=== PATIENT | female | born 1975 | race Caucasian/White ===

== ENCOUNTER 2017-03-10 10:06 | Emergency (ER) | payer OTHER, MEDICAID ==
[2017-03-10 10:54] LABS: ANION GAP 12 mEq/L (8-16); CALCIUM 9.4 mg/dL (8.5-10.4); CARBON DIOXIDE 27 mEq/l (22-31); CHLORIDE 101 mEq/L (97-110); CREATININE 0.6 mg/dL (0.6-1.0); GLOMERULAR FILTRATION RATE > 60; GLUCOSE 115 mg/dL (70-100); SODIUM 140 mEq/L (134-144)
--- NOTE | 2017-03-10 10:56 | EDPHY ---
H & P Stated Complaint: SI/HI APPEALS COORDINATOR in ED after blood draw. Time Seen by Provider: 03/10/17 10:10 HPI/ROS: CHIEF COMPLAINT: Suicidal ideation, agitation, threatening behavior HISTORY OF PRESENT ILLNESS: This is a 41-year-old female with history of developmental delay, Tourette syndrome, OCD, and intermittent explosive disorder who resides at a fdc. Patient presented to the [facility] for a monthly, routine, blood draw as she has done multiple times in the past. After leaving the lab, patient's care provider, Valentín, reports that she soundly became agitated, combative, kicking, screaming, punching cars in the parking lot, throwing herself on the ground, and expressing suicidal ideation. He reports that the patient has been intermittently agitated and having fluctuations in her emotional state for the last 2 weeks. She has had recent changes to her medication including increasing her Seroquel as well as increasing her risperidone. Her lithium has recently been stopped. Per the care provider, the patient expresses suicidal ideation, care plan as outlined by Dr. Kramer is that the patient should be taken to [facility] for medical clearance and consideration of inpatient admission, potentially at [facility]. On my history, the patient tells me that she became quite upset because her care provider day for not give her any candy. She does have a history of developing extreme tachycardia with any caffeine including chocolate as well as becoming quite agitated with sugar. On my examination, the patient does not endorse suicidal ideation. She denies any pain. She tells me she came to the hospital to have her blood drawn as has been done in the past. Denies any recent fevers or chills, denies chest pain or shortness of breath, denies abdominal upset, vomiting, diarrhea, headache, or other medical complaints. REVIEW OF SYSTEMS: Review of systems is potentially unreliable from this patient with a history of developmental delay. PAST MEDICAL HISTORY: Tourette syndrome, developmental delay, enuresis, GERD, OCD, intermittent explosive disorder SOCIAL HISTORY: Resides at [facility]. Nonsmoker. VITAL SIGNS Reviewed by me. GENERAL: Well-developed, well-nourished, resting comfortably in no respiratory distress. HEENT: Atraumatic. Eyes: PERRL, EOMI. No icterus, no injection. Mouth: Slightly dry mucous membranes. No erythema or lesions. Neck: supple with no adenopathy. LUNGS: Clear to auscultation bilaterally, no wheezes, rhonchi or rales. CARDIAC: Regular rate and rhythm, no rubs, murmurs or gallops. ABDOMEN: Soft, nontender, nondistended, bowel sounds normal. BACK: No CVA tenderness. EXTREMITIES: No trauma. No edema. Range of motion is normal throughout. NEURO: Alert and oriented to person and place. Moving all extremities x4. Normal sensation in grossly nonfocal.l SKIN: Warm and dry, no rash. PSYCHIATRIC: No agitation on my examination. Asking repeatedly for food. - Personal History LMP (Females 10-55): Unknown - Medical/Surgical History Hx Asthma: No Hx Chronic Respiratory Disease: No Hx Diabetes: No Hx Cardiac Disease: No Hx Renal Disease: No Hx Cirrhosis: No Hx Alcoholism: No Hx HIV/AIDS: No Hx Splenectomy or Spleen Trauma: No Other PMH: MR,tourettes,OCD,GERD<Hypothyroid,DVT,Enuresis,Anemia - Social History Smoking Status: Unknown if ever smoked Constitutional: Initial Vital Signs Temperature (C) 36.5 C 03/10/17 10:06 Heart Rate 95 03/10/17 10:06 Respiratory Rate 16 03/10/17 10:06 Blood Pressure 109/79 03/10/17 10:06 O2 Sat (%) 99 03/10/17 10:06 O2 Delivery Mode Room Air Allergies/Adverse Reactions: clonazepam [From Klonopin] Allergy (Verified 03/10/17 10:49) lamotrigine [From Lamictal] Allergy (Verified 03/10/17 10:49) FEVER,HIVES sulfamethoxazole [From Bactrim] Allergy (Verified 03/10/17 10:49) FEVER,HIVES trimethoprim [From Bactrim] Allergy (Verified 03/10/17 10:49) FEVER,HIVES Home Medications: Medication Instructions Recorded Clindamycin [Clindamycin] 150 mg PO QID 10 Days 06/30/10 Clozapine 06/30/10 DESMOPRESSIN ACETATE 06/30/10 Pepcid 06/30/10 Risperdal 06/30/10 Synthroid 06/30/10 Vits 06/30/10 Medical Decision Making ED Course/Re-evaluation: 41-year-old female with a history of OCD, and Tourette's syndrome, developmental delay presents the emergency department after an episode of agitation, aggressive behavior, physically combative, and expressing suicidal thoughts. She recently has been having some changes in her psychiatric medications. Patient was cooperative for blood draw. Patient's course was discussed with Dr. Jae Parra at [facility]. Patient will be transferred to [facility] for further psychiatric evaluation, and consideration of inpatient placement. Patient was placed on a 72 hour mental health hold by myself after discussions with the patient's care provider who reports that he does not feel safe with her at home, that she has become agitated, and expressing suicidal ideation. Differential Diagnosis: Differential diagnosis of the patient's presenting complaint was considered including but not limited to medication effect, suicidality, obsessive- compulsive disorder, drug or alcohol use, drug or alcohol withdrawal, functional and major depression, situational depression. - Data Points Laboratory Results: 03/10/17 03/10/17 10:30 10:30 Sodium Pending Potassium Pending Chloride Pending Carbon Dioxide Pending Anion Gap Pending BUN Pending Creatinine Pending Estimated GFR Pending Glucose Pending Calcium Pending TSH Pending Beta HCG, Qual Pending Departure - Departure Disposition: [facility] Clinical Impression: Suicidal ideation, Agitation Condition: Good Referrals: Yuri Andrews, [Primary Care Provider] - As per Instructions
[2017-03-10 12:44] LABS: COLOR YELLOW; LEUKOCYTE ESTERASE,URINE NEGATIVE (NEGATIVE); NITRITE,URINE NEGATIVE (NEGATIVE)
[2017-03-10 12:47] LABS: BACTERIA 4+ /hpf (NONE SEEN); MUCUS TRACE /lpf (NONE-1+)
[2017-03-10] MEDS ORDERED: FAMOTIDINE 20 MG TAB PO ONE (14:02)
[2017-03-10] MEDS ORDERED: QUEtiapine FUMARATE 200 MG TAB PO ONE ×2 (14:04→19:30)
[2017-03-10] MEDS ORDERED: risperiDONE 2 MG TAB PO ONE (14:05)
[2017-03-10] MEDS ORDERED: LEVOTHYROXINE 50 MCG TAB PO SCH (14:15)
[2017-03-10] MEDS ORDERED: cloZAPine 25 MG TAB PO SCH (14:15)
[2017-03-10] MEDS ORDERED: cloZAPine 100 MG TAB PO ONE (19:28)
[2017-03-10] MEDS: risperiDONE 2 MG TAB PO ONE ×2 (20:01→20:02)
--- NOTE | 2017-03-10 20:01 | EDPHY ---
H & P Time Seen by Provider: 03/10/17 10:10 Smoking Status: Unknown if ever smoked Constitutional: Initial Vital Signs Temperature (C) 36.5 C 03/10/17 10:06 Heart Rate 95 03/10/17 10:06 Respiratory Rate 16 03/10/17 10:06 Blood Pressure 109/79 03/10/17 10:06 O2 Sat (%) 99 03/10/17 10:06 O2 Delivery Mode Room Air Allergies/Adverse Reactions: clonazepam [From Klonopin] Allergy (Verified 03/10/17 10:49) lamotrigine [From Lamictal] Allergy (Verified 03/10/17 10:49) FEVER,HIVES sulfamethoxazole [From Bactrim] Allergy (Verified 03/10/17 10:49) FEVER,HIVES trimethoprim [From Bactrim] Allergy (Verified 03/10/17 10:49) FEVER,HIVES Home Medications: Medication Instructions Recorded DESMOPRESSIN ACETATE 06/30/10 Pepcid 20 mg DAILY 06/30/10 Synthroid 0.05 mg DAILY 06/30/10 Clozapine 150 mg HS 03/10/17 Desmopressin 0.2 mg HS 03/10/17 [place] Carbonate 03/10/17 Multivitamin 03/10/17 Peridex 03/10/17 Risperidone 03/10/17 Seroquel 03/10/17 VITAMIN D 03/10/17 Vitamin B Complex 03/10/17 Vitamin C 03/10/17 Medical Decision Making - Data Points Laboratory Results: Laboratory Results 03/10/17 10:30 03/10/17 03/10/17 03/10/17 12:38 12:38 10:30 Sodium Potassium Chloride Carbon Dioxide Anion Gap BUN Creatinine Estimated GFR Glucose Calcium TSH Beta HCG, Qual NEGATIVE Urine Color YELLOW Urine Appearance HAZY Urine pH 7.0 (5.0-7.5) Ur Specific [place] 1.006 (1.002-1.030) Urine Protein NEGATIVE (NEGATIVE) Urine Ketones NEGATIVE (NEGATIVE) Urine Blood NEGATIVE (NEGATIVE) Urine Nitrate NEGATIVE (NEGATIVE) Urine Bilirubin NEGATIVE (NEGATIVE) Urine Urobilinogen NEGATIVE EU EU (0.2-1.0) Ur Leukocyte Esterase NEGATIVE (NEGATIVE) Urine RBC 1-3 /hpf /hpf (0-3) Urine WBC 1-3 /hpf /hpf (0-3) Ur Epithelial Cells TRACE /lpf /lpf (NONE-1+) Urine Bacteria 4+ /hpf H /hpf (NONE SEEN) Urine Mucus TRACE /lpf /lpf (NONE-1+) Urine Glucose NEGATIVE (NEGATIVE) Urine Opiates Screen NEGATIVE NEGATIVE (NEGATIVE) (NEGATIVE) Urine Barbiturates NEGATIVE NEGATIVE (NEGATIVE) (NEGATIVE) Ur Phencyclidine Scrn NEGATIVE NEGATIVE (NEGATIVE) (NEGATIVE) Ur Amphetamine Screen NEGATIVE NEGATIVE (NEGATIVE) (NEGATIVE) U Benzodiazepines Scrn NEGATIVE NEGATIVE (NEGATIVE) (NEGATIVE) Urine Cocaine Screen NEGATIVE NEGATIVE (NEGATIVE) (NEGATIVE) U Marijuana (THC) Screen NEGATIVE NEGATIVE (NEGATIVE) (NEGATIVE) 03/10/17 10:30 Sodium 140 mEq/L mEq/L (134-144) Potassium 4.0 mEq/L mEq/L (3.5-5.2) Chloride 101 mEq/L mEq/L (97-110) Carbon Dioxide 27 mEq/l mEq/l (22-31) Anion Gap 12 mEq/L mEq/L (8-16) BUN 11 mg/dL mg/dL (7-23) Creatinine 0.6 mg/dL mg/dL (0.6-1.0) Estimated GFR > 60 Glucose 115 mg/dL H mg/dL (70-100) Calcium 9.4 mg/dL mg/dL (8.5-10.4) TSH 1.080 uIU/mL uIU/mL (0.465-4.680) Beta HCG, Qual Urine Color Urine Appearance Urine pH Ur Specific [place] Urine Protein Urine Ketones Urine Blood Urine Nitrate Urine Bilirubin Urine Urobilinogen Ur Leukocyte Esterase Urine RBC Urine WBC Ur Epithelial Cells Urine Bacteria Urine Mucus Urine Glucose Urine Opiates Screen Urine Barbiturates Ur Phencyclidine Scrn Ur Amphetamine Screen U Benzodiazepines Scrn Urine Cocaine Screen U Marijuana (THC) Screen Medications Given: Clozapine (Clozaril) 25 mg PO DAILY KATIA Stop: 09/06/17 14:14 Last Admin: 03/10/17 14:29 Dose: 25 mg Desmopressin Acetate (Ddavp) 0.2 mg PO EDNOW ONE Stop: 03/10/17 21:01 Last Admin: 03/10/17 20:01 Dose: 0.2 mg Levothyroxine Sodium (Synthroid) 50 mcg PO DAILY AT 6AM KATIA Stop: 09/06/17 14:14 Last Admin: 03/10/17 14:29 Dose: Not Given Discontinued Medications Clozapine (Clozaril) 150 mg PO EDNOW ONE Stop: 03/10/17 19:29 Last Admin: 03/10/17 20:02 Dose: 150 mg Famotidine (Pepcid) 20 mg PO EDNOW ONE Stop: 03/10/17 14:03 Last Admin: 03/10/17 14:11 Dose: 20 mg Quetiapine Fumarate (Seroquel) 150 mg PO EDNOW ONE Stop: 03/10/17 14:05 Last Admin: 03/10/17 14:11 Dose: 150 mg Quetiapine Fumarate (Seroquel) 150 mg PO EDNOW ONE Stop: 03/10/17 19:31 Last Admin: 03/10/17 19:49 Dose: 150 mg Risperidone (Risperdal) 2 mg PO ONCE ONE Stop: 03/10/17 14:06 Last Admin: 03/10/17 14:29 Dose: 2 mg Risperidone (Risperdal) 2 mg PO ONCE ONE Stop: 03/10/17 19:31 Last Admin: 03/10/17 20:02 Dose: 2 mg Departure - Departure Disposition: Home, Routine, Self-Care Clinical Impression: Agitation, Situational depression Condition: Good Instructions: Depression (ED) Additional Instructions: Read and follow provided instructions. Follow[facility]up with [facility] as instructed on Sunday for further evaluation and management. Take your medication as prescribed. Return to the emergency department for worsening symptoms or other serious concerns. Referrals: [facility],. [Clinic] - As per Instructions
[2017-03-10] MEDS ORDERED: DESMOPRESSIN 0.1 MG TAB PO ONE (21:00)
[2017-03-10 21:06] VITALS: BP 109/66; PULSE 80; RESP 14; TEMP 98.1; O2SAT 99
--- NOTE | 2017-03-10 21:16 | ASMTCMCOM ---
CM Note CM Note Notes: Requested to assist patient with safe discharge once EPS evaluated patient and recommended discharge. Rhoda Johnson was EPS whipped topping mixer and said patient's police surgeon home caregiver, Valentín, was saying he wouldn't take patient back home tonight due to patient's aggressive behavior. Rhoda deemed patient safe to discharge back home but was unable or unwilling to assist with securing safe dsicharge/transport home. ED RN was concerned that if patient's caregiver was not willing to accept patient back home that APS should be contacted. Rhoda said she would not call APS and make that report. ED RN Catherine felt at that time that APS should be contacted since patient was not being provided a safe discharge plan from the EPS whipped topping mixer and her own caregiver was refusing to accept her back. EPS was recommended to consult with [facility] and their case briefer to assist with contacting patient's care management company, [employer]. However this did not take place. This CM became involved when it seemed evident that if patient's caregiver continued to refuse patient to return home and that EPS was ultimately recommending discharge, which the option would have been a respite bed at the custodial. This CM did not feel this was appropriate or a safe plan. This CM contacted Ela [place] with [employer] (cell: [phone]) and she agreed pt needed a safer dc plan. Ela mentioned that the care management team at [facility] and their psychiatrist were hoping the ED was the safest place for the patient until Sunday when they could find alternative placement. Ela was informed that the mental health whipped topping mixer assessed patient and thinks she is safe to dc home. This CM explained that the ED is not a place to house or hold patients when they have been put up for discharge. Ela contacted patient's caregiver and explained the situation, caregiver agreed to have patient return but was unable to provide transport. Patient could not go by cab safely. Ela paid for private pay wheelchair stretcher through [employer] transport. RN gave report to Valentín, tip, and patient was calm and cooperative and discharged back home. CM available for further assistance. Date Signed: 03/10/2017 09:15 PM Electronically Signed By:Any Talamantes RN
--- NOTE | 2017-03-10 21:18 | ASDISCHSUM ---
Discharge Information Plan Status:[facility] Medically Cleared to Leave: Discharge Date:03/10/2017 09:06 PM CM D/C Disposition:Home, Routine, Self-Care ADT D/C Disposition:Home, Routine, Self-Care Projected Discharge Date:03/10/2017 09:06 PM Transportation at D/C:Wheelchair Van Discharge Delay Reason: Follow-Up Date:03/10/2017 09:06 PM Discharge Slot: Final Diagnosis: Placement Information Patient Contact Information Contact Name:DELVIS Relationship:Other Address:[address] [place] [address] Work Phone: City:[place] Alternate Phone: State/Zip Code:[place] [address] Email: Financial Information Financial Class: Primary Plan Desc:MEDICARE OUTPATIENT Primary Plan Number:[id number] Secondary Plan Desc:MEDICAID HEALTH FIRST [place] OP Secondary Plan Number:[id number] Assessment Information [facility] CM Progress Note CM Note CM Note Notes: Requested to assist patient with safe discharge once EPS evaluated patient and recommended discharge. Rhoda Johnson was EPS program/music director and said patient's hydrology teacher home caregiver, Valentín, was saying he wouldn't take patient back home tonight due to patient's aggressive behavior. Rhoda deemed patient safe to discharge back home but was unable or unwilling to assist with securing safe dsicharge/transport home. ED RN was concerned that if patient's caregiver was not willing to accept patient back home that APS should be contacted. Rhoda said she would not call APS and make that report. ED RN Catherine felt at that time that APS should be contacted since patient was not being provided a safe discharge plan from the EPS program/music director and her own caregiver was refusing to accept her back. EPS was recommended to consult with [facility] and their community case manager to assist with contacting patient's care management company, [employer]. However this did not take place. This CM became involved when it seemed evident that if patient's caregiver continued to refuse patient to return home and that EPS was ultimately recommending discharge, which the option would have been a [facility] the [facility]. This CM did not feel this was appropriate or a safe plan. This CM contacted Ela [place] with [employer] (cell: [phone]) and she agreed pt needed a safer dc plan. Ela mentioned that the care management team at [facility] and their psychiatrist were hoping the ED was the safest place for the patient until Sunday when they could find alternative placement. Ela was informed that the mental health program/music director assessed patient and thinks she is safe to dc home. This CM explained that the ED is not a place to house or hold patients when they have been put up for discharge. Ela contacted patient's caregiver and explained the situation, caregiver agreed to have patient return but was unable to provide transport. Patient could not go by cab safely. Ela paid for private pay wheelchair stretcher through [employer] transport. RN gave report to Valentín, tip, and patient was calm and cooperative and discharged back home. CM available for further assistance. Date Signed: 03/10/2017 09:15 PM Electronically Signed By:Any Talamantes RN LACE LACE Acuity / Level of Care Answers: No. Emergency dept visits in Answers: 1 last 6 months Score: 1 Date Signed: 03/10/2017 09:15 PM Electronically Signed By:Any Talamantes RN Intervention Information
== END 2017-03-10 21:06 | disposition home or self-care (01) ==
LOC: CED 10:06
DX: F43.21 Adjustment disorder with depressed mood (principal)
CPT/HCPCS: 80048-PO; 80305; 80307-PO; 81003-PO; 81015-PO; 84443-PO; 84703-PO; 85025-PO